=== PATIENT | male | born 1985 | race Caucasian/White ===

== ENCOUNTER 2019-09-15 19:33 | Emergency (ER) | payer OTHER ==
--- NOTE | 2019-09-15 20:15 | ED ---
General Adult HPI - General Chief complaint: Anxiety Stated complaint: Anxiety Time Seen by Provider: 09/15/19 19:57 Source: patient, family Mode of arrival: ambulatory Limitations: no limitations - History of Present Illness Initial comments: 34-year-old male patient presents to the emergency department today for evaluation of increased anxiety, fear, and suicidal ideation. States that a few days ago he went [place] the [place] the [place]. He states that he is generally afraid of heights and would never have gone to the top of the [place]. Patient states that he has been taking prozac and they have been increasing the dose. He believes being on the medication helped him to go to the top. Once he got there he "freaked out" and they had a hard time getting him to come down. Since the incident patient has been more fearful and afraid. He has been extremely anxious and having difficulty sleeping. He has been having thoughts of suicide without a plan. He was evaluated at [facility] last night for the same symptoms. He denies any current physical symptoms or concerns. Denies alcohol or drug use. Denies any hallucinations. Patient denies any recent rash, fever, chills, cough, shortness of breath, chest pain, abdominal pain, nausea, vomiting, diarrhea, constipation, back pain, numbness, tingling, dizziness, weakness, hematuria, dysuria, urinary urgency, urinary frequency, headache, visual changes, or any other complaints. - Related Data Previous Rx's Medication Instructions Recorded LORazepam [Ativan] 1 mg PO HS 3 Days #3 tab 09/15/19 Allergies Allergy/AdvReac Type Severity Reaction Status Date / Time No Known Allergies Allergy Verified 09/15/19 19:55 Review of Systems ROS Statement: Those systems with pertinent positive or pertinent negative responses have been documented in the HPI. ROS Other: All systems not noted in ROS Statement are negative. Past Medical History Past Medical History: No Reported History History of Any Multi-Drug Resistant Organisms: None Reported Past Surgical History: No Surgical Hx Reported Past Psychological History: Anxiety Smoking Status: Current every day smoker Past Alcohol Use History: None Reported Past Drug Use History: None Reported General Exam Limitations: no limitations General appearance: alert, in no apparent distress, other (Physical well- developed, well-nourished adult male patient in no acute distress. Vital signs upon presentation are temperature 99.4F, pulse 85, respirations 20, blood pressure 145/91, pulse ox 98% on room air.) Eye exam: Present: normal appearance, PERRL, EOMI. Absent: scleral icterus, conjunctival injection, periorbital swelling ENT exam: Present: normal exam, normal oropharynx, mucous membranes moist Respiratory exam: Present: normal lung sounds bilaterally. Absent: respiratory distress, wheezes, rales, rhonchi, stridor Cardiovascular Exam: Present: regular rate, normal rhythm, normal heart sounds. Absent: systolic murmur, diastolic murmur, rubs, gallop, clicks GI/Abdominal exam: Present: soft, normal bowel sounds. Absent: distended, tenderness, guarding, rebound, rigid Neurological exam: Present: alert, oriented X3, CN II-XII intact Psychiatric exam: Present: depressed, flat affect, suicidal ideation. Absent: homicidal ideation Skin exam: Present: warm, dry, intact, normal color. Absent: rash Course Vital Signs 09/15/19 19:50 Temperature 99.4 F Pulse Rate 85 Respiratory 20 Rate Blood Pressure 145/91 O2 Sat by Pulse 98 Oximetry Medical Decision Making - Medical Decision Making 34-year-old male patient presented to the emergency department today for evaluation of suicidal ideation. He had no plan to take his life. Physical examination was unremarkable. He is cleared medically and evaluated by emergency psychiatric services. They did a full evaluation and determined that he may have 2 large of a dose of his Prozac. They are requesting discharge with 3 tablets of 1 mg Ativan to help control symptoms until Wednesday when he can follow up with [facility]. Patient does contract for safety at home and did develop a safety plan. He will be discharged with a prescription. Instructed to follow- up Wednesday as planned. He'll be staying with his mother. Return parameters were discussed in detail. He verbalizes understanding and agrees with this plan. - Lab Data Lab Results 09/15/19 Range/Units 20:15 Urine Color Yellow Urine Appearance Clear (Clear) Urine pH 6.0 (5.0-8.0) Ur Specific [place] 1.025 (1.001-1.035) Urine Protein Trace H (Negative) Urine Glucose (UA) Negative (Negative) Urine Ketones 1+ H (Negative) Urine Blood Small H (Negative) Urine Nitrite Negative (Negative) Urine Bilirubin Negative (Negative) Urine Urobilinogen 2.0 (<2.0) mg/dL Ur Leukocyte Esterase Negative (Negative) Urine RBC 4 (0-5) /hpf Urine WBC 1 (0-5) /hpf Amorphous Sediment Rare H (None) /hpf Urine Mucus Rare H (None) /hpf Urine Opiates Screen Not Detected (NotDetected) Ur Oxycodone Screen Not Detected (NotDetected) Urine Methadone Screen Not Detected (NotDetected) Ur Propoxyphene Screen Not Detected (NotDetected) Ur Barbiturates Screen Not Detected (NotDetected) U Tricyclic Antidepress Not Detected (NotDetected) Ur Phencyclidine Scrn Not Detected (NotDetected) Ur Amphetamines Screen Not Detected (NotDetected) U Methamphetamines Scrn Not Detected (NotDetected) U Benzodiazepines Scrn Detected H (NotDetected) Urine Cocaine Screen Not Detected (NotDetected) U Marijuana (THC) Screen Not Detected (NotDetected) Disposition Clinical Impression: Anxiety Disposition: HOME SELF-CARE Instructions (If sedation given, give patient instructions): Generalized Anxiety Disorder (ED) Additional Instructions: Take medication daily for anxiety relief. Follow up with [facility] Wednesday as you have planned. Return to the emergency department immediately for any new, worsening, or concerning symptoms. Prescriptions: LORazepam [Ativan] 1 mg PO HS 3 Days #3 tab Is patient prescribed a controlled substance at d/c from ED?: Yes When asked, does pt state using other controlled substances?: No If prescribed controlled substance>3 days was MAPS reviewed?: Prescribed <3 Days Referrals: David Villa MD [Primary Care Provider] - 1-2 days Time of Disposition: 20:48
[2019-09-15 20:28] LABS: Amorphous Sediment,Urine Rare /hpf; Appearance,Urine Clear (Clear); Bilirubin,Urine Negative (Negative); Blood,Urine Small (Negative); Color,Urine Yellow; Glucose,Urine (UA) Negative (Negative); Ketones,Urine 1+ (Negative); Leukocyte Esterase,Urine Negative (Negative); Mucus,Urine Rare /hpf; Nitrite,Urine Negative (Negative); Protein,Urine Trace (Negative); RBC,Urine 4 /hpf (0-5); Specific Gravity,Urine 1.025 (1.001-1.035); WBC,Urine 1 /hpf (0-5)
[2019-09-15 20:36] LABS: Amphetamine Screen,Urine Not Detected (NotDetected); Barbiturate Screen,Urine Not Detected (NotDetected); Benzodiazepines Screen,Urine Detected (NotDetected); Cocaine Screen,Urine Not Detected (NotDetected); Methadone Screen, Urine Not Detected (NotDetected); Opiate Screen,Urine Not Detected (NotDetected); Oxycodone Screen, Urine Not Detected (NotDetected); Phencyclidine Screen,Urine Not Detected (NotDetected); Tricyclic Antidepressant,Urine Not Detected (NotDetected); Urn Cannabinoid Scrn Not Detected (NotDetected)
[2019-09-15 20:45] VITALS: BP 145/91; PULSE 85; RESP 20; TEMP 99.4
[2019-09-15] MEDS ORDERED: LORazepam 1 MG TAB PO STA (20:48)
== END 2019-09-15 21:09 | disposition home or self-care (01) ==
LOC: EC 19:33
DX: F41.9 Anxiety disorder, unspecified (principal); R45.851 Suicidal ideations; F32.9 Major depressive disorder, single episode, unspecified; F17.200 Nicotine dependence, unspecified, uncomplicated
CPT/HCPCS: 80306; 81001; 82075; 99284

== ENCOUNTER → 2021-09-17 | Outpatient (CLI) | payer OTHER ==
--- NOTE | 2021-09-17 15:56 | US ---
EXAMINATION TYPE: US kidneys/renal and bladder DATE OF EXAM: 09/17/2021 COMPARISON: NONE CLINICAL HISTORY: R31.1 MICROHEMATURIA. Microhematuria. EXAM MEASUREMENTS: Right Kidney: 11.1 x 5.4 x 3.9 cm Left Kidney: 11.5 x 5.6 x 5.5 cm Right Kidney: Pyramids appear to be prominent. No masses seen. Left Kidney: Pyramids appear to be prominent. No masses seen. Bladder: Appears anechoic. Bilateral Jets seen: Yes IMPRESSION: Source of hematuria not identified. If symptoms persist further investigation with CT uro gram may be warranted
== END | disposition home or self-care (01) ==
LOC: RADUSWWP 14:45
PROVIDERS: ATTEND Urology
DX: R31.29 Other microscopic hematuria (principal)
CPT/HCPCS: 76770